=== PATIENT | female | born 1950 | race Caucasian/White ===

== ENCOUNTER 2024-01-08 17:45 | Emergency (ER) | payer MEDICARE, OTHER ==
[~2024-01-08] VITALS: Ht 160 cm; Wt 46.0 kg
[2024-01-08] MEDS: NAPROXEN 250 MG TAB PO ONE (21:04)
[2024-01-08] MEDS: methocarbamoL 750 MG TAB PO ONE (21:04)
[2024-01-08] MEDS: PERCOCET 5MG/325MG TAB PO ONE (22:34)
[2024-01-08] MEDS ORDERED: PERC5TAB12 PO (22:52)
[2024-01-08] MEDS ORDERED: NAPR-837 PO (22:52)
[2024-01-08] MEDS ORDERED: METH-1165 PO (22:52)
[2024-01-08] MEDS: OXYCODONE/APAP 5MG/325MG(HOME DOSE PACK) PO ONE (23:17)
[2024-01-08 23:29] VITALS: BP 172/77; TEMP 97; O2SAT 92
== END 2024-01-08 23:31 | disposition home or self-care (01) ==
LOC: EDBD 17:45 → M ED 17:45
DX: M54.50 Low back pain, unspecified (principal); M51.36 Other intervertebral disc degeneration, lumbar region; E03.9 Hypothyroidism, unspecified; Z79.899 Other long term (current) drug therapy